=== PATIENT | male | born 1965 | race Caucasian/White ===

== ENCOUNTER 2022-09-19 11:33 | Day surgery (SDC) | payer OTHER ==
[~2022-09-19] VITALS: Ht 170.2 cm; Wt 95.3 kg
[2022-09-19] MEDS ORDERED: MIDAZOLAM 2 MG/2 ML VIAL ONE (14:53)
[2022-09-19] MEDS ORDERED: fentaNYL citrate 0.05 MG/ML VIAL ONE (14:53)
[2022-09-19] MEDS ORDERED: MIDAZOLAM 2 MG/2 ML VIAL IVP ONE (16:00)
== END 2022-09-19 15:55 | disposition home or self-care (01) ==
LOC: MDS 11:33 → MMU 11:35 → MDS 15:55
PROVIDERS: ATTEND Internal Medicine Gastroenterology
DX: K70.9 Alcoholic liver disease, unspecified (principal); I85.10 Secondary esophageal varices without bleeding
CPT/HCPCS: 43235; J2250; J3010